=== PATIENT | female | born 1980 | race Two or more races ===

== ENCOUNTER 2020-04-21 10:15 | Inpatient (IN) | payer OTHER ==
[~2020-04-21] VITALS: Ht 165.1 cm; Wt 93.4 kg
[2020-04-21] MEDS ORDERED: SYNTHROID137 MCG PO (14:09)
[2020-04-28] MEDS ORDERED: MAXIMUM D3325 MCG (10:34)
[2020-04-30] MEDS ORDERED: OXYC1TAB9 PO (07:42)
[2020-04-30] MEDS ORDERED: IBUPROFEN800 MG PO (07:43)
== END 2020-04-30 11:10 | disposition home or self-care (01) | DRG 743 ==
LOC: OB/GYN 04-28 09:09 → O/R 04-28 09:09 → OB/GYN 04-28 14:23 → SURH 04-28 10:15
PROVIDERS: ADMIT Obstetrics & Gynecology Gynecology; ATTEND Obstetrics & Gynecology Gynecology
PROC: 0UB70ZZ Excision of Bilateral Fallopian Tubes, Open Approach (ICD-10-PCS; 2020-04-28)
PROC: 0UT90ZZ Resection of Uterus, Open Approach (ICD-10-PCS; principal; 2020-04-28 12:30)
DX: N72 Inflammatory disease of cervix uteri (principal); N83.8 Other noninflammatory disorders of ovary, fallopian tube and broad ligament; D25.1 Intramural leiomyoma of uterus; N92.0 Excessive and frequent menstruation with regular cycle